=== PATIENT | male | born 1995 | race Caucasian/White ===

== ENCOUNTER 2017-07-14 16:58 | Inpatient (IN) ==
[2017-07-14] MEDS ORDERED: hydrOXYzine pamoate 25 MG CAPSULE PO PRN (20:24)
[2017-07-14] MEDS ORDERED: *HR* LORazepam 2 MG/ML VIAL IM PRN (20:24)
[2017-07-14] MEDS ORDERED: MOM Conc 10 ML UD.LIQ PO PRN (20:24)
[2017-07-14] MEDS ORDERED: *HR* LORazepam 1 MG TABLET PO PRN (20:24)
[2017-07-14] MEDS ORDERED: Mag Hydrox/Al Hydrox/Simeth 30 ML UDC PO PRN (20:24)
[2017-07-14] MEDS ORDERED: Haloperidol Lactate 5 MG/ML VIAL IM PRN (20:24)
[2017-07-14] MEDS ORDERED: Acetaminophen 325 MG TABLET PO PRN (20:24)
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
--- NOTE | 2017-07-16 16:05 | Psychiatry Progress Note ---
Date of Encounter: 07/16/17 Time of Encounter: 15:15 Subjective Interval history: Patient seen for follow-up. Patient continue to display significant symptoms of paranoia and obsessiveness and preoccupation with specific themes: 1. He believes that he was injected with anesthetic for the last 2 nights and he described his sleep as an unusual for him .I attempted to redirect him to standard of care that requires patient consent prior to any medication administration. he does not seem to be receptive 2. Continue to be preoccupied with his testosterone level and trying to explain how he can feel the effect of testosterone on his circulation and other body systems. 3. Continue to be preoccupied with multiple diet supplements and alternative medicine items and having detailed information on each of them, he is dismissive when it comes to seeking professional medical help and treatment instead . 4. I discussed with him treatment trial with medication, he was reluctant and asked me many questions and he was educated about treatment and expectation but could not decided if he would consider this option. Review of Systems Psychiatric: Reports: depression, other (Paranoid delusions, obsessive thoughts) Objective: Exam Patient orientation: Yes Person, Yes Time, Yes Place Level of alertness: Alert Patient appearance: Appropriate, Well Groomed, Bizarre Behavior: calm, cooperative, guarded, suspicious Psychomotor activity: Normal Eye contact: Intense Contact Mood description: Euthymic/stable, Anxious Affect description: congruent with mood, constricted, other (Inappropriate smiling) Speech pattern: Normal rate, Normal rhythm, Normal tone Speech volume: Normal Thought process: Linear, Goal Oriented, Circumstantial Thought content: No Suicidal ideation, Yes Homicidal ideation, No Overt delusions, Yes Preoccupation, Yes Paranoid delusion, Yes Somatic delusion, Yes Obsessive thoughts Perceptual disturbances: No Auditory hallucinations, No Visual hallucinations Judgment: Fair Insight: Partial Results - Vital Signs Vital Signs: Temp Pulse Resp BP 99.2 F 96 18 145/84 07/16/17 08:53 07/16/17 08:53 07/16/17 08:53 07/16/17 08:53 Assessment and Plan (1) Unspecified psychosis Current visit: Yes Status: Acute Plan: Continue hospitalization, Close observation, Suicide Precautions per unit protocol, Encourage participation in unit milieu, Group Therapy, Monitor sleep, Monitor appetite Qualifiers: Psychosis type: unspecified psychosis type Qualified Code(s): F29 - Unspecified psychosis not due to a substance or known physiological condition (2) Delusional disorder Current visit: Yes Status: Acute Plan: Continue hospitalization, Close observation, Suicide Precautions per unit protocol, Encourage participation in unit milieu, Group Therapy, Monitor sleep, Monitor appetite Consult Discharge Plan - Plan Referrals: NONE,PCP [Primary Care Provider] -
--- NOTE | 2017-07-17 12:58 | Psychiatry Progress Note ---
Date of Encounter: 07/17/17 Time of Encounter: 12:30 Subjective Interval history: Patient is seen for follow-up. He reports his sleep is good but not the usual , he still believes that he was given medication or injected. He is agreeable to start treatment trial and explained to him that he will be given medication information and I would be available to answer any questions regarding this treatment trial I also explained that this is optional and he can choose not to have but he stated that he wants to have that treatment trial. Order will be given for Abilify 5 mg daily. Review of Systems Psychiatric: Reports: depression, other (Paranoid delusions, obsessive thoughts) Objective: Exam Patient orientation: Yes Person, Yes Time, Yes Place Level of alertness: Alert Patient appearance: Appropriate, Well Groomed Behavior: calm, cooperative, guarded, suspicious Psychomotor activity: Normal Eye contact: Maintains Eye Contact Mood description: Euthymic/stable Affect description: congruent with mood, full range, other (Inappropriate smiling) Speech pattern: Normal rate, Normal rhythm, Normal tone Speech volume: Normal Thought process: Linear, Goal Oriented Thought content: No Suicidal ideation, No Homicidal ideation, No Overt delusions Perceptual disturbances: No Auditory hallucinations, No Visual hallucinations Judgment: Fair Insight: Partial Results - Vital Signs Vital Signs: Temp Pulse Resp BP 98.3 F 78 16 124/73 07/17/17 09:00 07/17/17 09:00 07/17/17 09:00 07/17/17 09:00 Assessment and Plan (1) Unspecified psychosis Current visit: Yes Status: Acute Plan: Continue hospitalization, Close observation, Suicide Precautions per unit protocol, Encourage participation in unit milieu, Group Therapy, Monitor sleep, Monitor appetite Qualifiers: Psychosis type: unspecified psychosis type Qualified Code(s): F29 - Unspecified psychosis not due to a substance or known physiological condition (2) Delusional disorder Current visit: Yes Status: Acute Plan: Continue hospitalization, Close observation, Suicide Precautions per unit protocol, Encourage participation in unit milieu, Group Therapy, Monitor sleep, Monitor appetite Additional Plan: Patient is agreeable to start treatment trial with Abilify 5 mg daily benefits and side effects were discussed with the patient and will monitor. Risks, benefits, side effects, alternatives discussed w/pt: Yes Patient agreeable to treatment: Yes Consult Discharge Plan - Plan Referrals: NONE,PCP [Primary Care Provider] -
[2017-07-17] MEDS: ARIPiprazole 5 MG TABLET PO SCH (20:44)
--- NOTE | 2017-07-18 14:28 | Psychiatry Progress Note ---
Date of Encounter: 07/18/17 Time of Encounter: 14:00 Subjective Interval history: Patient seen for follow-up. Nursing staff notes were reviewed and social work notes. Patient to his first dose of Abilify yesterday, he denies any problems but he is not sure if it is causing some GI upset. He continued to believe that he has been injected with medication at night's and was injection affecting his sleep despite confirmation that this did not happen. His hospital stay and discharge plans are in the works. He was educated about the medication and he is questions were answered. He is seclusive to his room most of the time. He did not express any suicidal or homicidal ideation. Paranoid delusion and obsessive thoughts related to medication and supplements continues. Review of Systems Psychiatric: Reports: depression, other (Paranoid delusions, obsessive thoughts) Objective: Exam Patient orientation: Yes Person, Yes Time, Yes Place Level of alertness: Alert Patient appearance: Appropriate, Well Groomed Behavior: calm, cooperative, guarded, suspicious Psychomotor activity: Normal Eye contact: Diverts Contact Mood description: Euthymic/stable Affect description: congruent with mood, full range, other (Inappropriate smiling) Speech pattern: Normal rate, Normal rhythm, Normal tone Speech volume: Normal Thought process: Linear, Goal Oriented Thought content: No Suicidal ideation, No Homicidal ideation, No Overt delusions , Yes Preoccupation, Yes Paranoid delusion, Yes Obsessive thoughts Perceptual disturbances: No Auditory hallucinations, No Visual hallucinations Judgment: Fair Insight: Partial Results - Vital Signs Vital Signs: Temp Pulse Resp BP 97.7 F 91 18 139/74 07/18/17 09:00 07/18/17 09:00 07/18/17 09:00 07/18/17 09:00 Assessment and Plan (1) Unspecified psychosis Current visit: Yes Status: Acute Plan: Continue hospitalization, Close observation, Suicide Precautions per unit protocol, Encourage participation in unit milieu, Group Therapy, Monitor sleep, Monitor appetite Qualifiers: Psychosis type: unspecified psychosis type Qualified Code(s): F29 - Unspecified psychosis not due to a substance or known physiological condition (2) Delusional disorder Current visit: Yes Status: Acute Plan: Continue hospitalization, Close observation, Suicide Precautions per unit protocol, Encourage participation in unit milieu, Group Therapy, Monitor sleep, Monitor appetite Risks, benefits, side effects, alternatives discussed w/pt: Yes Patient agreeable to treatment: Yes Consult Discharge Plan - Plan Referrals: NONE,PCP [Primary Care Provider] -
[2017-07-18] MEDS: ARIPiprazole 5 MG TABLET PO SCH (20:52)
--- NOTE | 2017-07-19 13:15 | Psychiatry Progress Note ---
Date of Encounter: 07/19/17 Time of Encounter: 13:09 Subjective Interval history: Patient seen for follow-up. Staff report he continued to believe that he is injected with medication without his knowledge. Continue to endorse paranoid and obsessed about hormonal treatment and alternative supplements. I [facility] and also lists of supplements the patient has been using and there are about 43 supplements. Patient continued to express concern about his safety outside the hospital. He has no insight into his mental illness. He did not provide any traffic personnel supervisor on the records who can be reached if needed. He denies any benefits or side effects from the new medication. Reviewed notes by licensed master social worker and nursing. Review of Systems Psychiatric: Reports: depression, other (Paranoid delusions, obsessive thoughts) Objective: Exam Patient orientation: Yes Person, Yes Time, Yes Place Level of alertness: Alert Patient appearance: Appropriate, Well Groomed Behavior: calm, cooperative, guarded, suspicious Psychomotor activity: Normal Eye contact: Fleeting Contact Mood description: Euthymic/stable, Anxious Affect description: congruent with mood, constricted Speech pattern: Normal rate, Normal rhythm, Normal tone, Other ( vague) Speech volume: Normal Thought process: Linear, Goal Oriented, Evasive Thought content: No Suicidal ideation, No Homicidal ideation, No Overt delusions , Yes Preoccupation, Yes Paranoid delusion, Yes Obsessive thoughts Perceptual disturbances: No Auditory hallucinations, No Visual hallucinations Judgment: Fair Insight: Partial Results - Vital Signs Vital Signs: Temp Pulse Resp BP 98.2 F 105 16 128/76 07/19/17 09:00 07/19/17 09:00 07/19/17 09:00 07/19/17 09:00 Assessment and Plan (1) Unspecified psychosis Current visit: Yes Status: Acute Plan: Continue hospitalization, Close observation, Suicide Precautions per unit protocol, Encourage participation in unit milieu, Group Therapy, Monitor sleep, Monitor appetite Qualifiers: Psychosis type: unspecified psychosis type Qualified Code(s): F29 - Unspecified psychosis not due to a substance or known physiological condition (2) Delusional disorder Current visit: Yes Status: Acute Plan: Continue hospitalization, Close observation, Suicide Precautions per unit protocol, Encourage participation in unit milieu, Group Therapy, Monitor sleep, Monitor appetite Risks, benefits, side effects, alternatives discussed w/pt: Yes Patient agreeable to treatment: Yes Consult Discharge Plan - Plan Referrals: [facility] [Outside] (The above appointment is with , for outpatient psychiatric assessment and medication management services. Please arrive 30 minutes early to complete paperwork. Please bring your photo ID ( bring proof of address if you do not have an ID) and medication list. The above appointment(s) reflects first availability. You may contact the office regularly to check for cancellations that may allow you to be seen sooner. Additionally, the new rn case management assigned to you will contact you directly to schedule your intake appointment for case management and mental health counseling services. )
[2017-07-19] MEDS: ARIPiprazole 5 MG TABLET PO SCH (20:12)
--- NOTE | 2017-07-20 15:09 | Psychiatry Progress Note ---
Date of Encounter: 07/20/17 Time of Encounter: 15:05 Subjective Interval history: Patient seen for follow-up. Nursing staff reports he continued to believe that she is injected at night with medication despite its redirection. Patient continued to endorse his delusion and paranoia . He is preoccupied and obsessed with medication and diet supplements. I discussed with him increasing his dose of Abilify, after long discussion and answering several questions for him is agreeable to increase the medication reluctantly. licensed social worker should this patient information regarding probate hearing next week. He is not presenting any active suicidal or homicidal ideation. He is tolerating current medication. Review of Systems Psychiatric: Reports: depression, other (Paranoid delusions, obsessive thoughts) Objective: Exam Patient orientation: Yes Person, Yes Time, Yes Place Level of alertness: Alert Patient appearance: Appropriate, Well Groomed Behavior: calm, cooperative, guarded, suspicious Psychomotor activity: Normal Eye contact: Fleeting Contact Mood description: Euthymic/stable, Anxious Affect description: congruent with mood, constricted Speech pattern: Normal rate, Normal rhythm, Normal tone, Limited Speech volume: Normal Thought process: Linear, Goal Oriented Thought content: No Suicidal ideation, No Homicidal ideation, No Overt delusions Perceptual disturbances: No Auditory hallucinations, No Visual hallucinations Judgment: Fair Insight: Partial Results - Vital Signs Vital Signs: Temp Pulse Resp BP 98.2 F 99 16 149/81 07/20/17 09:00 07/20/17 09:00 07/20/17 09:00 07/20/17 09:00 Assessment and Plan (1) Unspecified psychosis Current visit: Yes Status: Acute Plan: Continue hospitalization, Close observation, Suicide Precautions per unit protocol, Encourage participation in unit milieu, Group Therapy, Monitor sleep, Monitor appetite Additional Plan: Will increase Abilify to 10 mg at bedtime. Discussed with patient and his agreeable. Qualifiers: Psychosis type: unspecified psychosis type Qualified Code(s): F29 - Unspecified psychosis not due to a substance or known physiological condition (2) Delusional disorder Current visit: Yes Status: Acute Plan: Continue hospitalization, Close observation, Suicide Precautions per unit protocol, Encourage participation in unit milieu, Group Therapy, Monitor sleep, Monitor appetite Risks, benefits, side effects, alternatives discussed w/pt: Yes Patient agreeable to treatment: Yes Consult Discharge Plan - Plan Referrals: [facility] [Outside] (The above appointment is with , for outpatient psychiatric assessment and medication management services. Please arrive 30 minutes early to complete paperwork. Please bring your photo ID ( bring proof of address if you do not have an ID) and medication list. The above appointment(s) reflects first availability. You may contact the office regularly to check for cancellations that may allow you to be seen sooner. Additionally, the new family preservation caseworker assigned to you will contact you directly to schedule your intake appointment for case management and mental health counseling services. )
[2017-07-20] MEDS: ARIPiprazole 5 MG TABLET PO SCH (20:52)
[2017-07-21] MEDS ORDERED: HCG IM SCH (13:15)
--- NOTE | 2017-07-21 15:54 | Psychiatry Progress Note ---
Date of Encounter: 07/21/17 Time of Encounter: 15:49 Subjective Interval history: Patient is seen for follow-up. He is not reporting any significant side effects from medication. He reports mild drowsiness part of the day. He he asked for some of his vitamins or supplements to be brought from home and he is taking them under supervision from the nursing staff. He denies any problem with sleep. Continue to be guarded and suspicious, not socializing with other patients. He asked me about medication benefits and side effects and also the duration of the treatments and what are the expectation of treatment and I educated him about his medication and answered his questions to his satisfaction. Review of Systems Psychiatric: Reports: depression, other (Paranoid delusions, obsessive thoughts) Objective: Exam Patient orientation: Yes Person, Yes Time, Yes Place Level of alertness: Alert Patient appearance: Appropriate, Well Groomed Behavior: calm, cooperative, guarded, suspicious Psychomotor activity: Normal Eye contact: Maintains Eye Contact Mood description: Euthymic/stable Affect description: congruent with mood, full range Speech pattern: Normal rate, Normal rhythm, Normal tone Speech volume: Normal Thought process: Linear, Goal Oriented Thought content: No Suicidal ideation, No Homicidal ideation, Yes Overt delusions, Yes Preoccupation, Yes Paranoid delusion, Yes Obsessive thoughts Perceptual disturbances: No Auditory hallucinations, No Visual hallucinations Judgment: Fair Insight: Partial Results - Vital Signs Vital Signs: Temp Pulse Resp BP 97.7 F 91 18 125/74 07/21/17 09:00 07/21/17 09:00 07/21/17 09:00 07/21/17 09:00 Assessment and Plan (1) Unspecified psychosis Current visit: Yes Status: Acute Plan: Continue hospitalization, Close observation, Suicide Precautions per unit protocol, Encourage participation in unit milieu, Group Therapy, Monitor sleep, Monitor appetite Qualifiers: Psychosis type: unspecified psychosis type Qualified Code(s): F29 - Unspecified psychosis not due to a substance or known physiological condition (2) Delusional disorder Current visit: Yes Status: Acute Plan: Continue hospitalization, Close observation, Suicide Precautions per unit protocol, Encourage participation in unit milieu, Group Therapy, Monitor sleep, Monitor appetite Risks, benefits, side effects, alternatives discussed w/pt: Yes Patient agreeable to treatment: Yes Consult Discharge Plan - Plan Referrals: NONE,PCP [Primary Care Provider] -
[2017-07-21] MEDS: [UNRECOGNIZED DRUG - OTHER] PO SCH (17:42)
[2017-07-21] MEDS: traZODone 50 MG TABLET PO PRN (20:57)
[2017-07-21] MEDS: ARIPiprazole 5 MG TABLET PO SCH (20:57)
[2017-07-21] MEDS: Anastrozole 1 MG TABLET PO SCH (20:57)
[2017-07-22] MEDS: [UNRECOGNIZED DRUG - OTHER] PO SCH (08:44)
--- NOTE | 2017-07-22 14:04 | Psychiatry Progress Note ---
Date of Encounter: 07/22/17 Time of Encounter: 13:30 Subjective Interval history: Patient is seen for follow-up. Staff report she continues to believe that he has been injected with medication every night. He is seclusive to his room and tends attendant ACTIVITIES without participation. He is very strict on his diets and fourth items. He denies any side effects from medication and reports he is less sedated from the medicine. He agreed to have blood test for testosterone level to verify if he needs supplements. She is preoccupied with hormone levels and balance between different supplements that she is taking. [facility] bilateral gynecomastia excision and liposuction on 04/06/2017. By Dr. Diane Casiano M.D. Review of Systems Psychiatric: Reports: depression, other (Paranoid delusions, obsessive thoughts) Objective: Exam Patient orientation: Yes Person, Yes Time, Yes Place Level of alertness: Alert Patient appearance: Appropriate, Well Groomed Behavior: calm, cooperative, guarded, suspicious Psychomotor activity: Normal Eye contact: Maintains Eye Contact Mood description: Euthymic/stable Affect description: congruent with mood, full range, constricted Speech pattern: Normal rate, Normal rhythm, Normal tone, Limited Speech volume: Normal Thought process: Linear, Goal Oriented Thought content: No Suicidal ideation, No Homicidal ideation, No Overt delusions , Yes Preoccupation, Yes Paranoid delusion, Yes Obsessive thoughts Perceptual disturbances: No Auditory hallucinations, No Visual hallucinations Judgment: Fair Insight: Minimal Results - Vital Signs Vital Signs: Temp Pulse Resp BP 98.2 F 101 18 121/64 07/22/17 09:21 07/22/17 09:21 07/22/17 09:21 07/22/17 09:21 Assessment and Plan (1) Unspecified psychosis Current visit: Yes Status: Acute Plan: Continue hospitalization, Close observation, Suicide Precautions per unit protocol, Encourage participation in unit milieu, Group Therapy, Monitor sleep, Monitor appetite Qualifiers: Psychosis type: unspecified psychosis type Qualified Code(s): F29 - Unspecified psychosis not due to a substance or known physiological condition (2) Delusional disorder Current visit: Yes Status: Acute Plan: Continue hospitalization, Close observation, Suicide Precautions per unit protocol, Encourage participation in unit milieu, Group Therapy, Monitor sleep, Monitor appetite Risks, benefits, side effects, alternatives discussed w/pt: Yes Patient agreeable to treatment: Yes Consult Discharge Plan - Plan Referrals: NONE,PCP [Primary Care Provider] -
[2017-07-22] MEDS: [UNRECOGNIZED DRUG - OTHER] PO SCH (18:35)
[2017-07-22] MEDS: ARIPiprazole 5 MG TABLET PO SCH (20:57)
[2017-07-23] MEDS: [UNRECOGNIZED DRUG - OTHER] PO SCH (08:39)
[2017-07-23] MEDS: [UNRECOGNIZED DRUG - OTHER] PO SCH ×2 (08:40→17:42)
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
[2017-07-23] MEDS: ARIPiprazole 5 MG TABLET PO SCH ×2 (17:41→20:23)
[2017-07-23] MEDS: Anastrozole 1 MG TABLET PO SCH (19:07)
[2017-07-24] MEDS: [UNRECOGNIZED DRUG - OTHER] PO SCH (08:13)
[2017-07-24] MEDS: [UNRECOGNIZED DRUG - OTHER] PO SCH ×2 (08:15→18:04)
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
[2017-07-24] MEDS ORDERED: HCG SQ SCH (13:15)
[2017-07-24] MEDS: ARIPiprazole 10 MG TABLET PO SCH (20:48)
[2017-07-24] MEDS: traZODone 50 MG TABLET PO PRN (22:07)
[2017-07-25] MEDS: Ibuprofen 600 MG TABLET PO PRN ×3 (06:14→22:56)
[2017-07-25] MEDS: [UNRECOGNIZED DRUG - OTHER] PO SCH ×2 (08:46→17:29)
[2017-07-25] MEDS: [UNRECOGNIZED DRUG - OTHER] PO SCH ×2 (08:47→11:40)
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
[2017-07-25] MEDS: Anastrozole 1 MG TABLET PO SCH (16:13)
[2017-07-25] MEDS: ARIPiprazole 10 MG TABLET PO SCH (20:58)
[2017-07-25] MEDS ORDERED: OLANZapine 5 MG TAB.RAPDIS PO SCH (21:00)
[2017-07-26] MEDS: Ibuprofen 600 MG TABLET PO PRN ×3 (08:04→20:07)
[2017-07-26] MEDS: [UNRECOGNIZED DRUG - OTHER] PO SCH (08:32)
[2017-07-26] MEDS: [UNRECOGNIZED DRUG - OTHER] PO SCH ×2 (08:33→17:01)
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
[2017-07-26] MEDS: ARIPiprazole 5 MG TABLET PO SCH (20:07)
[2017-07-26] MEDS: OLANZapine 10 MG TAB.RAPDIS PO SCH (20:07)
[2017-07-27] MEDS: Ibuprofen 600 MG TABLET PO PRN ×2 (09:38→17:46)
[2017-07-27] MEDS: [UNRECOGNIZED DRUG - OTHER] PO SCH (09:42)
[2017-07-27] MEDS: [UNRECOGNIZED DRUG - OTHER] PO SCH ×2 (09:53→17:37)
[2017-07-27] MEDS: HCG SQ SCH (09:57)
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
[2017-07-27] MEDS: Anastrozole 1 MG TABLET PO SCH (17:24)
[2017-07-27] MEDS: traZODone 50 MG TABLET PO PRN (21:23)
[2017-07-27] MEDS: ARIPiprazole 5 MG TABLET PO SCH (21:23)
[2017-07-27] MEDS: OLANZapine 10 MG TAB.RAPDIS PO SCH (21:23)
[2017-07-28] MEDS: [UNRECOGNIZED DRUG - OTHER] PO SCH (09:29)
[2017-07-28] MEDS: [UNRECOGNIZED DRUG - OTHER] PO SCH ×2 (09:30→17:13)
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
[2017-07-28] MEDS: Ibuprofen 600 MG TABLET PO PRN ×2 (15:47→20:54)
[2017-07-28] MEDS ORDERED: OLANZapine 10 MG TAB.RAPDIS PO SCH (21:00)
[2017-07-28] MEDS ORDERED: ARIPiprazole 5 MG TABLET PO SCH (21:00)
[2017-07-28] MEDS: traZODone 50 MG TABLET PO PRN (21:31)
[2017-07-29] MEDS: [UNRECOGNIZED DRUG - OTHER] PO SCH (08:47)
[2017-07-29] MEDS: [UNRECOGNIZED DRUG - OTHER] PO SCH ×2 (08:52→17:42)
[2017-07-29] MEDS: Ibuprofen 600 MG TABLET PO PRN ×2 (10:37→18:53)
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
[2017-07-29] MEDS: Anastrozole 1 MG TABLET PO SCH (12:19)
[2017-07-29] MEDS: OLANZapine 10 MG TAB.RAPDIS PO SCH (20:28)
[2017-07-29] MEDS: traZODone 50 MG TABLET PO PRN (21:02)
[2017-07-30] MEDS: HCG SQ SCH (08:50)
[2017-07-30] MEDS: [UNRECOGNIZED DRUG - OTHER] PO SCH (09:31)
[2017-07-30] MEDS: [UNRECOGNIZED DRUG - OTHER] PO SCH ×2 (09:32→17:47)
[2017-07-30] MEDS: Ibuprofen 600 MG TABLET PO PRN ×2 (09:45→16:12)
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
[2017-07-30] MEDS: OLANZapine 10 MG TAB.RAPDIS PO SCH (20:52)
[2017-07-30] MEDS ORDERED: OLANZapine 5 MG TAB.RAPDIS PO SCH (21:00)
[2017-07-31] MEDS: Anastrozole 1 MG TABLET PO SCH (09:26)
[2017-07-31] MEDS: [UNRECOGNIZED DRUG - OTHER] PO SCH (09:27)
[2017-07-31] MEDS: [UNRECOGNIZED DRUG - OTHER] PO SCH ×2 (09:28→17:13)
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
[2017-07-31] MEDS: Ibuprofen 600 MG TABLET PO PRN ×2 (10:41→17:13)
[2017-07-31] MEDS ORDERED: OLANZapine 10 MG TAB.RAPDIS PO SCH (21:00)
[2017-07-31] MEDS: traZODone 50 MG TABLET PO PRN (21:43)
[2017-08-01] MEDS: [UNRECOGNIZED DRUG - OTHER] PO SCH (08:36)
[2017-08-01] MEDS: [UNRECOGNIZED DRUG - OTHER] PO SCH ×2 (08:37→18:17)
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
[2017-08-01] MEDS: Ibuprofen 600 MG TABLET PO PRN ×2 (12:31→20:33)
[2017-08-01] MEDS ORDERED: OLANZapine 10 MG TAB.RAPDIS PO SCH (21:00)
[2017-08-02] MEDS ORDERED: OLANZapine 10 MG TAB.RAPDIS PO SCH (08:59)
[2017-08-02] MEDS: [UNRECOGNIZED DRUG - OTHER] PO SCH (09:28)
[2017-08-02] MEDS: [UNRECOGNIZED DRUG - OTHER] PO SCH ×2 (09:31→20:58)
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
[2017-08-02] MEDS: HCG SQ SCH ×2 (11:34→17:01)
[2017-08-02] MEDS: Anastrozole 1 MG TABLET PO SCH (11:45)
[2017-08-02] MEDS: Ibuprofen 600 MG TABLET PO PRN (15:46)
[2017-08-02] MEDS: traZODone 50 MG TABLET PO PRN (21:53)
--- NOTE | 2017-08-03 09:07 | Psychiatry Progress Note ---
Date of Encounter: 08/03/17 Time of Encounter: 09:40 Subjective Interval history: Patient is seen today for follow-up. He reports that he is not having any side effects to his current meds. He states that he is anxious for discharge plan. He slept well. Denies any auditory or visual hallucinations. He does continue to have fixed delusions but otherwise is able to function appropriately. He is attending appropriately to his ADLs. He is calm and cooperative with staff. Review of Systems Psychiatric: Reports: depression, other (Paranoid delusions, obsessive thoughts) Objective: Exam Patient orientation: Yes Person, Yes Time, Yes Place Level of alertness: Alert Patient appearance: Appropriate, Well Groomed Behavior: calm, cooperative Psychomotor activity: Normal Eye contact: Maintains Eye Contact Mood description: Euthymic/stable Affect description: blunted Speech pattern: Normal rate, Normal rhythm, Normal tone Speech volume: Normal Thought process: Intact Thought content: No Suicidal ideation, No Homicidal ideation, Yes Preoccupation , Yes Paranoid delusion, Yes Obsessive thoughts Perceptual disturbances: No Auditory hallucinations, No Visual hallucinations Judgment: Limited Insight: None Results - Vital Signs Vital Signs: Temp Pulse Resp BP 97.6 F 101 18 136/77 08/03/17 08:49 08/03/17 08:49 08/03/17 08:49 08/03/17 08:49 Assessment and Plan (1) Delusional disorder Current visit: Yes Status: Acute Plan: Continue hospitalization, Close observation, Suicide Precautions per unit protocol, Encourage participation in unit milieu, Group Therapy, Monitor sleep, Monitor appetite Additional Plan: We will continue cross taper of Zyprexa and Prolixin. Continue to monitor for side effects. Attempting to coordinate with family to find a appropriate disposition for patient. He is stabilizing from a psychiatric perspective and his delusions appear fixed at this time. There may be some improvement after Prolixin is fully adjusted. Continue to monitor and encourage reality based thinking. Risks, benefits, side effects, alternatives discussed w/pt: Yes Patient agreeable to treatment: Yes Consult Discharge Plan - Plan Referrals: Liborio Atwood, PhD [Outside] [facility] Solar Energy Technician [facility] [Outside] - 09/01/17 2:00 pm (The above appointment is with Dr. Ayde Feliz, for outpatient psychiatric assessment and medication management services. Please arrive 15 minutes early to complete paperwork. Please bring your insurance card, photo ID and medications in their original bottles. If you are unable to keep this appointment, 24 hour business notice of cancellation is expected. The above appointment(s) reflects first availability. You may contact the office regularly to check for cancellations that may allow you to be seen sooner.)
[2017-08-03] MEDS: Ibuprofen 600 MG TABLET PO PRN (09:45)
[2017-08-03] MEDS: [UNRECOGNIZED DRUG - OTHER] PO SCH (09:46)
[2017-08-03] MEDS: [UNRECOGNIZED DRUG - OTHER] PO SCH ×2 (09:46→17:41)
--- NOTE | 2017-08-03 09:49 | Psychiatry Progress Note ---
Date of Encounter: 08/03/17 Review of Systems Psychiatric: Reports: depression, other (Paranoid delusions, obsessive thoughts) Results - Vital Signs Vital Signs: Temp Pulse Resp BP 97.6 F 101 18 136/77 08/03/17 08:49 08/03/17 08:49 08/03/17 08:49 08/03/17 08:49 Assessment and Plan (1) Delusional disorder Current visit: Yes Status: Acute Risks, benefits, side effects, alternatives discussed w/pt: Yes Patient agreeable to treatment: Yes Consult Discharge Plan - Plan Referrals: Liborio Atwood, PhD [Outside] [facility] Section 8 Property Manager [place] [Outside] - 09/01/17 2:00 pm (The above appointment is with Dr. Ayde Feliz, for outpatient psychiatric assessment and medication management services. Please arrive 15 minutes early to complete paperwork. Please bring your insurance card, photo ID and medications in their original bottles. If you are unable to keep this appointment, 24 hour business notice of cancellation is expected. The above appointment(s) reflects first availability. You may contact the office regularly to check for cancellations that may allow you to be seen sooner.)
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
[2017-08-04] MEDS: [UNRECOGNIZED DRUG - OTHER] PO SCH ×2 (09:24→17:05)
[2017-08-04] MEDS: [UNRECOGNIZED DRUG - OTHER] PO SCH (09:24)
[2017-08-04] MEDS: Anastrozole 1 MG TABLET PO SCH (09:25)
[2017-08-04 14:53] LABS: Arsenic <10.0 ug/L (0.0-13.0); Cadmium <1.0 ug/L (0.0-5.0); Mercury 4 ug/L (0-10)
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
[2017-08-04] MEDS ORDERED: OLANZapine 10 MG TAB.RAPDIS PO SCH (21:00)
[2017-08-05] MEDS: [UNRECOGNIZED DRUG - OTHER] PO SCH (09:12)
[2017-08-05] MEDS: [UNRECOGNIZED DRUG - OTHER] PO SCH ×2 (09:13→17:10)
--- NOTE | 2017-08-05 10:59 | Psychiatry Progress Note ---
Date of Encounter: 08/05/17 Time of Encounter: 10:25 Subjective Interval history: Giuseppe is seen today for follow-up. He is guarded and appears mildly anxious but reports that he slept well. Last night he did have a lot of anxiety and was given the option of taking some Ativan. Patient denies side effects of current medications. He does wonder how long he will be taking these meds. We discussed that he should continue them as prescribed as well as outpatient psychiatrist making any adjustments. We also discussed that the extra supplements the patient had been taking may be affecting his mental health and he should only be taking one suggested by a doctor. Patient is agreeable to all her taking supplements prescribed by an internal audit director and will not be taking any of the extra supplements that are not recommended. Review of Systems Psychiatric: Reports: depression, other (Paranoid delusions, obsessive thoughts) Objective: Exam Patient orientation: Yes Person, Yes Time, Yes Place Level of alertness: Alert Patient appearance: Appropriate, Well Groomed Behavior: calm, guarded Psychomotor activity: Normal Eye contact: Maintains Eye Contact Mood description: Euthymic/stable Affect description: blunted Speech pattern: Normal rate, Normal rhythm, Normal tone Speech volume: Normal Thought process: Intact, Linear Thought content: Yes Preoccupation, Yes Paranoid delusion, Yes Obsessive thoughts Perceptual disturbances: No Auditory hallucinations, No Visual hallucinations Judgment: Limited Insight: Minimal Results - Vital Signs Vital Signs: Temp Pulse Resp BP 98.4 F 73 16 130/73 08/04/17 21:00 08/04/17 21:00 08/04/17 21:00 08/04/17 21:00 - Labs Labs: Laboratory Results - last 24 hr 07/27/17 15:08 Whole Blood Cadmium <1.0 Whole Blood Arsenic <10.0 Whole Blood Lead <2.0 Mercury 4 Assessment and Plan (1) Delusional disorder Current visit: Yes Status: Acute Plan: Continue hospitalization, Close observation, Suicide Precautions per unit protocol, Encourage participation in unit milieu, Group Therapy, Monitor sleep, Monitor appetite Additional Plan: We will increase Prolixin slightly and monitor for side effects. The patient is maintaining current baseline we will likely discharge on Tuesday to his new apartment. Discharge arrangements are being made by the treatment team. Continue to monitor behavior and encourage group attendance. Risks, benefits, side effects, alternatives discussed w/pt: Yes Patient agreeable to treatment: Yes Consult Discharge Plan - Plan Referrals: Liborio Atwood, PhD [Outside] - 08/10/17 1:00 pm (The above appointment is with Liborio Atwood, PhD.) [facility] [Outside] - 09/01/17 2:00 pm (The above appointment is with Dr. Ayde Feliz, psychiatrist. Please arrive 15 minutes early to complete paperwork. Please bring your insurance card, photo ID and medications in their original bottles. If you are unable to keep this appointment, 24 hour business notice of cancellation is expected. The above appointment(s) reflects first availability. You may contact the office regularly to check for cancellations that may allow you to be seen sooner.) Prescriptions: Fluphenazine [Prolixin] 15 mg PO HS #45 tablet
[2017-08-05] MEDS: HCG SQ SCH (16:12)
[2017-08-05] MEDS: traZODone 50 MG TABLET PO PRN (20:46)
[2017-08-06] MEDS: Anastrozole 1 MG TABLET PO SCH (08:56)
[2017-08-06] MEDS: [UNRECOGNIZED DRUG - OTHER] PO SCH ×2 (08:57→17:20)
[2017-08-06] MEDS: [UNRECOGNIZED DRUG - OTHER] PO SCH (08:57)
--- NOTE | 2017-08-06 10:55 | Psychiatry Progress Note ---
Date of Encounter: 08/06/17 Time of Encounter: 10:20 Subjective Interval history: Patient seen and interviewed. History and physical examination reviewed. Patient appears calm and controlled cooperative. He is still preoccupied with his paranoid themes and ideations but at this point he is planning on focusing on his life. He reported that his aunt has arranged an apartment for him and he will be staying there and looking for a job. When explored about his fixed delusions towards his family members patient reported that at this point in time he is not thinking about it and is focusing more on getting his life back. Sleeping and eating better. Denies any suicidal or homicidal ideations. Still appears guarded but more relaxed and calm. Tolerating medications fairly well. Review of Systems Psychiatric: Reports: other (Paranoid delusions, obsessive thoughts) Objective: Exam Patient orientation: Yes Person, Yes Time, Yes Place Level of alertness: Alert Patient appearance: Appropriate, Well Groomed Behavior: calm, guarded Psychomotor activity: Normal Eye contact: Maintains Eye Contact Mood description: Euthymic/stable Affect description: congruent with mood, full range Speech pattern: Normal rate, Normal rhythm, Normal tone Speech volume: Normal Thought process: Linear, Goal Oriented Thought content: No Suicidal ideation, No Homicidal ideation, No Overt delusions , Yes Preoccupation, Yes Paranoid delusion, Yes Obsessive thoughts Perceptual disturbances: No Auditory hallucinations, No Visual hallucinations Judgment: Fair Insight: Partial Results - Vital Signs Vital Signs: Temp Pulse Resp BP 98.0 F 93 16 118/60 08/06/17 09:00 08/06/17 09:00 08/06/17 09:00 08/06/17 09:00 Assessment and Plan (1) Unspecified psychosis Current visit: Yes Status: Acute Plan: Continue hospitalization, Close observation, Suicide Precautions per unit protocol, Encourage participation in unit milieu, Group Therapy, Monitor sleep, Monitor appetite Additional Plan: Possible discharge tomorrow Risks, benefits, side effects, alternatives discussed w/pt: Yes Qualifiers: Psychosis type: unspecified psychosis type Qualified Code(s): F29 - Unspecified psychosis not due to a substance or known physiological condition Consult Discharge Plan - Plan Referrals: Liborio Atwood, PhD [Outside] - 08/10/17 1:00 pm (The above appointment is with Liborio Atwood, PhD.) [facility] [Outside] - 09/01/17 2:00 pm (The above appointment is with Dr. Ayde Feliz, psychiatrist. Please arrive 15 minutes early to complete paperwork. Please bring your insurance card, photo ID and medications in their original bottles. If you are unable to keep this appointment, 24 hour business notice of cancellation is expected. The above appointment(s) reflects first availability. You may contact the office regularly to check for cancellations that may allow you to be seen sooner.) Prescriptions: Fluphenazine [Prolixin] 15 mg PO HS #45 tablet
[2017-08-06 20:56] VITALS: BP 128/72
[2017-08-07] MEDS: [UNRECOGNIZED DRUG - OTHER] PO SCH (09:23)
[2017-08-07] MEDS: [UNRECOGNIZED DRUG - OTHER] PO SCH (09:23)
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
== END 2017-08-07 11:20 | disposition home or self-care (01) | DRG 885 ==
LOC: 1ANU 16:58 → SUATTDRO 16:58
PROVIDERS: ADMIT Psychiatry & Neurology Psychiatry; ATTEND Psychiatry & Neurology Psychiatry

== ENCOUNTER 2017-11-18 17:16 | Inpatient (IN) ==
[2017-11-18 17:54] LABS: Basophils % 0.4 %; Eosinophils % 0.2 %; Hemoglobin 16.7 g/dL (12.9-16.9); Immature Granulocytes % 0.2 % (0-4); Lymphocytes # 1.1 K/mcL (0.6-4.6); Lymphocytes % 12.2 %; Mean Corpuscular HGB Conc 34.8 g/dL (31.6-35.5); Mean Corpuscular Hemoglobin 29.9 pg (28.0-33.3); Mean Corpuscular Volume 85.9 fL (83.0-100.0); Mean Platelet Volume 10.2 fL (9.4-12.4); Monocytes # 0.7 K/mcL (0.0-1.3); Neutrophils # 7.4 K/mcL (1.6-8.9); Platelet Count 225 K/mcL (140-400); Red Blood Count 5.59 M/mcL (4.19-5.50); Red Cell Distribution Width 11.5 % (11.5-14.5)
[2017-11-18 18:09] LABS: BUN/Creatinine Ratio 12 (6-26); Blood Urea Nitrogen 15 mg/dL (6-20); Calcium 9.7 mg/dL (8.6-10.3); Carbon Dioxide 21 mEq/L (23-29); Chloride 104 mEq/L (98-107); Glucose 127 mg/dL (70-105); Osmolality,Calculated 286 (280-300); Potassium 3.6 mEq/L (3.5-5.1); Sodium 137 mEq/L (136-145); eGFR For African Americans > 60 (> 60); eGFR For Non-African Americans > 60 (> 60)
[2017-11-18 18:10] LABS: Acetaminophen < 1.0 mcg/mL (10-30); Ethanol < 10 mg/dL (0-10); Salicylate < 5.0 mg/dL (15.0-30.0)
[2017-11-18 18:24] LABS: Bilirubin,Urine Negative (Negative); Blood,Urine Negative (Negative); Clarity,Urine Clear (Clear); Color,Urine Yellow (Yellow); Glucose,Urine (UA) Normal (Normal); Ketones,Urine 40 mg/dL (Negative); Leukocyte Esterase,Urine Negative (Negative); Nitrite,Urine Negative (Negative); PH,Urine 6.5 pH Units (5.0-8.0); Protein,Urine Negative (Neg-Trace); Specific Gravity,Urine 1.015 (1.010-1.025); Urobilinogen,Urine Normal (Normal)
[2017-11-18 18:29] LABS: Amphetamine Screen,Urine Negative ng/mL (Cutoff=1000); Barbiturate Screen,Urine Negative ng/mL (Cutoff=200); Benzodiazepines Screen,Urine Negative ng/mL (Cutoff=200); Cannabinoid Screen,Urine Negative ng/mL (Cutoff = 50); Cocaine Screen,Urine Negative ng/mL (Cutoff= 300); Opiate Screen,Urine Negative ng/mL (Cutoff=300); Phencyclidine Screen,Urine Negative ng/mL (Cutoff=25)
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
[2017-11-18] MEDS ORDERED: GI Cocktail 40 ML EACH PO ONE (20:28)
[2017-11-18] MEDS ORDERED: *HR* LORazepam 1 MG TABLET PO ONE (20:28)
[2017-11-18] MEDS ORDERED: *HR* LORazepam 1 MG TABLET PO PRN (20:56)
[2017-11-18] MEDS ORDERED: Acetaminophen 325 MG TABLET PO PRN (20:56)
[2017-11-18] MEDS ORDERED: *HR* LORazepam 2 MG/ML VIAL IM PRN (20:56)
[2017-11-18] MEDS ORDERED: Mag Hydrox/Al Hydrox/Simeth 30 ML UDC PO PRN (20:56)
[2017-11-18] MEDS ORDERED: MOM Conc 10 ML UD.LIQ PO PRN (20:56)
[2017-11-19] MEDS: Ascorbic Acid 500 MG TABLET PO SCH (08:48)
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
[2017-11-20] MEDS: Ascorbic Acid 500 MG TABLET PO SCH (09:37)
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
[2017-11-21] MEDS: Ascorbic Acid 500 MG TABLET PO SCH (09:44)
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
[2017-11-21] MEDS: traZODone 50 MG TABLET PO PRN (22:13)
[2017-11-22] MEDS: Ascorbic Acid 500 MG TABLET PO SCH (08:55)
--- NOTE | 2017-11-22 12:45 | Psychiatry Progress Note ---
Date of Encounter: 11/22/17 Time of Encounter: 12:28 Subjective Interval history: Patient seen today , case d/w staff and treatment team , patient remains same extremely preoccupied religiously , will stand for long time in his room praying , and while in session is praying loud. he states that he wants to change medicine as having extreme muscle spasm and weakness. he will answer and then starts praying louder. will dc prolixin as c/o muscle spasm and weakness, on exam AIMS 0 will start olanzapine 5 mg hs patient is not sleeping well as per him and is internally preoccupied ,wide range of thoughts come to his mind and he feels need to pray. today he is more guarded and preoccupied. Review of Systems Psychiatric: Reports: anxiety, change in appetite, difficulty concentrating Objective: Exam Patient orientation: Yes Person, Yes Time, Yes Place Level of alertness: Alert Patient appearance: Appropriate Behavior: guarded, distractible Psychomotor activity: Normal Eye contact: Minimal Contact Mood description: Anxious Affect description: blunted Speech pattern: Slowed Speech volume: Soft/Quiet Thought content: Yes Preoccupation, Yes Moravian delusion Judgment: Poor Insight: Minimal Results - Vital Signs Vital Signs: Temp Pulse Resp BP Pulse Ox 97.6 F 77 14 117/61 100 11/22/17 09:00 11/22/17 09:00 11/22/17 09:00 11/22/17 09:00 11/18/17 17:35 Assessment and Plan (1) Schizophreniform disorder Current visit: Yes Status: Acute Risks, benefits, side effects, alternatives discussed w/pt: Yes Patient agreeable to treatment: Yes Consult Discharge Plan - Plan Referrals: Liborio Atwood, PhD [Outside] [facility] [Outside] - 12/07/17 11:30 am (The above appointment is with Dr. Ayde Feliz for outpatient psychiatric assessment and medication management services. You also have another appointment scheduled with Dr. Feliz for 01/23/2018 at 1:00 PM.)
[2017-11-22] MEDS ORDERED: OLANZapine 5 MG TAB.RAPDIS PO SCH (21:00)
[2017-11-23] MEDS: Ascorbic Acid 500 MG TABLET PO SCH (08:50)
--- NOTE | 2017-11-23 13:18 | Psychiatry Progress Note ---
Date of Encounter: 11/23/17 Time of Encounter: 13:00 Subjective Interval history: Patient seen today , remains same as per treatment team , he has been increasingly praying also while in group he stood up and started praying , also has thoughts and believes he has done things , he is guarded, preoccupied internally and responds only if asked . patient was started on olanzapine as he had side effects from prolixin but he has been on it before and no good response , will change to ольга , d/w patient and he agrees with the plan. patient remains psychotic at present. Review of Systems Psychiatric: Reports: anxiety, change in appetite, difficulty concentrating Objective: Exam Patient orientation: Yes Person, Yes Time, Yes Place Level of alertness: Alert Patient appearance: Appropriate Behavior: cooperative, guarded Psychomotor activity: Slowed Eye contact: Minimal Contact Mood description: Anxious Affect description: blunted Speech pattern: Slowed Speech volume: Soft/Quiet Thought process: Slowed Thinking Thought content: Yes Preoccupation, Yes Voodoo delusion Perceptual disturbances: Yes Reacting to internal stimuli Judgment: Poor Insight: Minimal Results - Vital Signs Vital Signs: Temp Pulse Resp BP Pulse Ox 97.4 F L 81 16 118/64 100 11/23/17 09:00 11/23/17 09:00 11/23/17 09:00 11/23/17 09:00 11/18/17 17:35 Assessment and Plan (1) Schizophreniform disorder Current visit: Yes Status: Acute Risks, benefits, side effects, alternatives discussed w/pt: Yes Patient agreeable to treatment: Yes Consult Discharge Plan - Plan Referrals: Liborio Atwood, PhD [Outside] [facility] [Outside] - 12/07/17 11:30 am (The above appointment is with Dr. Ayde Feliz for outpatient psychiatric assessment and medication management services. You also have another appointment scheduled with Dr. Feliz for 01/23/2018 at 1:00 PM.)
[2017-11-23] MEDS: Ziprasidone 20 MG CAPSULE PO SCH (20:58)
[2017-11-24] MEDS: Ascorbic Acid 500 MG TABLET PO SCH (08:34)
[2017-11-24] MEDS: Ziprasidone 20 MG CAPSULE PO SCH ×2 (08:34→21:44)
--- NOTE | 2017-11-24 12:39 | Psychiatry Progress Note ---
Date of Encounter: 11/24/17 Time of Encounter: 12:10 Subjective Interval history: Patient seen today , case d/w treatment team , as per team he has been staring blankly , praying a lot and internally preoccupied. Today in session with me , he bought list of side effects. states having anxiety , heart feels heavy,voice is different, heavy lungs, thinking is cloudy, low sex drive,blurry vision , low interest in other things , dizzy , lightheaded,circulation problems, hallucinations letters , symbols , objects , sounds , peripheral vision. muscle weakness and fatigue. patient has poor eye contact , speech is fine when he speaks, exam done, no tongue movement , no tremors , no difficulty swallowing as he did and also ate food without any complaint. will add ativan for his anxiety and nervousness. patient agreed with plan. Review of Systems Psychiatric: Reports: anxiety, change in appetite, difficulty concentrating Objective: Exam Patient orientation: Yes Person, Yes Time, Yes Place Level of alertness: Alert Patient appearance: Appropriate Behavior: cooperative, guarded Psychomotor activity: Slowed Eye contact: Minimal Contact Mood description: Anxious Affect description: blunted, flat Speech pattern: Slowed Speech volume: Soft/Quiet Thought process: Disorganized, Slowed Thinking Thought content: Yes Preoccupation, Yes Paranoid delusion, Yes Hindu delusion, Yes Obsessive thoughts, Yes Poverty of Content Perceptual disturbances: Yes Reacting to internal stimuli Judgment: Poor Insight: None Results - Vital Signs Vital Signs: Temp Pulse Resp BP Pulse Ox 98.1 F 93 16 130/67 100 11/24/17 09:00 11/24/17 09:00 11/24/17 09:00 11/24/17 09:00 11/18/17 17:35 Assessment and Plan (1) Schizophreniform disorder Current visit: Yes Status: Acute Risks, benefits, side effects, alternatives discussed w/pt: Yes Patient agreeable to treatment: Yes Consult Discharge Plan - Plan Referrals: Liborio Atwood, PhD [Outside] [facility] [Outside] - 12/07/17 11:30 am (The above appointment is with Dr. Ayde Feliz for outpatient psychiatric assessment and medication management services. You also have another appointment scheduled with Dr. Feliz for 01/23/2018 at 1:00 PM.)
[2017-11-24] MEDS: *HR* LORazepam 0.5 MG TABLET PO SCH ×2 (14:44→21:44)
[2017-11-25] MEDS: Ziprasidone 20 MG CAPSULE PO SCH ×2 (08:52→21:23)
[2017-11-25] MEDS: *HR* LORazepam 0.5 MG TABLET PO SCH ×3 (08:52→21:24)
[2017-11-25] MEDS: Ascorbic Acid 500 MG TABLET PO SCH (08:52)
--- NOTE | 2017-11-25 11:56 | Psychiatry Progress Note ---
Date of Encounter: 11/25/17 Time of Encounter: 11:30 Subjective Interval history: patient seen today , probate done . he today feels inside his head feels weird , its not pain or headache some thing like in brain. he also c/o cloudy thinking and not focused and feels tired. he is preoccupied with the side effects. he is on low dose of geodon and at present tolerating well , will not increase dose yet , today no complain of muscle weakness or stiffness. eating his meals and also attended groups. still has pre occupation with sins and praying. he has in past using multiple supplements . today states that when i was on harmone replacement therapy i was better , i had no anxiety and my head was clear. was on testosterone before , wants to start that. Review of Systems Psychiatric: Reports: anxiety, change in appetite, difficulty concentrating Objective: Exam Patient orientation: Yes Person, Yes Time, Yes Place Level of alertness: Alert Patient appearance: Appropriate Behavior: cooperative, guarded Psychomotor activity: Slowed Eye contact: Minimal Contact Mood description: Anxious Affect description: blunted Speech pattern: Slowed Speech volume: Normal Thought process: Perseveration Thought content: Yes Overt delusions, Yes Preoccupation, Yes Mormonism delusion , Yes Somatic delusion Judgment: Poor Insight: Partial Results - Vital Signs Vital Signs: Temp Pulse Resp BP Pulse Ox 98 F 93 16 119/67 100 11/25/17 09:00 11/25/17 09:00 11/25/17 09:00 11/25/17 09:00 11/18/17 17:35 Assessment and Plan (1) Schizophreniform disorder Current visit: Yes Status: Acute Risks, benefits, side effects, alternatives discussed w/pt: Yes Patient agreeable to treatment: Yes Consult Discharge Plan - Plan Referrals: Liborio Atwood, PhD [Outside] [facility] [Outside] - 12/07/17 11:30 am (The above appointment is with Dr. Ayde Feliz for outpatient psychiatric assessment and medication management services. You also have another appointment scheduled with Dr. Feliz for 01/23/2018 at 1:00 PM.)
[2017-11-26] MEDS: *HR* LORazepam 0.5 MG TABLET PO SCH ×3 (09:11→22:37)
[2017-11-26] MEDS: Ziprasidone 20 MG CAPSULE PO SCH (09:11)
[2017-11-26] MEDS: Ascorbic Acid 500 MG TABLET PO SCH (09:12)
--- NOTE | 2017-11-26 12:29 | Psychiatry Progress Note ---
Date of Encounter: 11/26/17 Time of Encounter: 12:15 Subjective Interval history: Patient seen today , case d/w staff. Patient is more verbal now , still poor eye contact , states i had incident last night after i got emotional from the memories i was having and i called my parents and after i finished my conversation with them and apologized to them , i felt better. i was crying for no reason and i apologized to nurses . slept better, still releigiously preoccupied but not to that extent. will increase geodon to 20 mg am and 40 mg po pm . monitor closely. Review of Systems Psychiatric: Reports: anxiety, change in appetite, difficulty concentrating Results - Vital Signs Vital Signs: Temp Pulse Resp BP Pulse Ox 97.4 F L 56 17 119/54 100 11/26/17 09:00 11/26/17 09:00 11/26/17 09:00 11/26/17 09:00 11/18/17 17:35 Assessment and Plan (1) Schizophreniform disorder Current visit: Yes Status: Acute Risks, benefits, side effects, alternatives discussed w/pt: Yes Patient agreeable to treatment: Yes Consult Discharge Plan - Plan Referrals: Liborio Atwood, PhD [Outside] [facility] [Outside] - 12/07/17 11:30 am (The above appointment is with Dr. Ayde Feliz for outpatient psychiatric assessment and medication management services. You also have another appointment scheduled with Dr. Feliz for 01/23/2018 at 1:00 PM.) Psychiatry Exam - Constitutional Vitals: Temp Pulse Resp BP Pulse Ox 97.4 F L 56 17 119/54 100 11/26/17 09:00 11/26/17 09:00 11/26/17 09:00 11/26/17 09:00 11/18/17 17:35 General appearance: age & developmentally appropriate - Musculoskeletal Gait: normal Station: other Strength & Tone: normal for patient - Psychiatric Patient Orientation: Yes Person, Yes Time, Yes Place Level of alertness: Alert Behavior: guarded Psychomotor activity: Normal Eye Contact: Minimal Contact Mood Description: Anxious Affect description: blunted Speech Volume: Soft/Quiet Speech pattern: slowed Language & Vocabulary: limited Thought Process: Slowed Thinking Thought Content: Yes Preoccupation, Yes Pentecostal delusion Attention Span Ability: Unable to Sustain Attention Patient Reliability: Questionable Historian Fund of knowledge: Yes average Intelligence Estimate: Average Judgment: Limited Insight: Minimal
[2017-11-26] MEDS ORDERED: *HR* LORazepam 2 MG/ML VIAL IM STA (20:04)
[2017-11-26] MEDS ORDERED: Haloperidol Lactate 5 MG/ML VIAL IM ONE (20:05)
[2017-11-26] MEDS ORDERED: OLANZapine 10 MG TAB.RAPDIS PO STA (20:12)
[2017-11-26] MEDS: Divalproex (12 HR) 250 MG TABLET PO SCH (20:29)
[2017-11-26] MEDS ORDERED: Ziprasidone 20 MG CAPSULE PO SCH (21:00)
[2017-11-27] MEDS: Ziprasidone 20 MG CAPSULE PO SCH ×2 (08:56→10:23)
[2017-11-27] MEDS: Ascorbic Acid 500 MG TABLET PO SCH (08:56)
[2017-11-27] MEDS: Divalproex (12 HR) 250 MG TABLET PO SCH ×2 (08:56→21:25)
[2017-11-27] MEDS: *HR* LORazepam 0.5 MG TABLET PO SCH ×3 (08:56→21:23)
--- NOTE | 2017-11-27 12:04 | Psychiatry Progress Note ---
Date of Encounter: 11/27/17 Time of Encounter: 11:40 Subjective Interval history: Patient seen today , case d/w staff. Patient was given prn medications yesterday and this morning as he would take out all his clothes and come out of room and will not wear clothes. after the prn medications he slept but in morning again was naked and in day room , he was redirected to his room and sitter was assigned as patient can be in his room and not to disrupt the unit miliue he is redirectable but refuses to wear clothes, he stated I am praying and this is what i have to do now, he is internally pre occupied but denies auditory or visual hallucination. he is continuosly reading bible. at present no agitation and remains delusional. regarding his medications multiple changes done , he did not respond to geodon there fore re started Prolixin with benadryl , he had responded well to it but had c/o muscle spasm with not only prolixin but with all other anti psychotics given he has been tried on zyprexa, geodon , abilify and risperdal. also started depakote which will help his moods and add on to antipsychotic will help his psychosis. AT PRESENT NO SIDE EFFECTS NOTED OR COMPLAINED BY PATIENT. Continue sitter for his safety and others. prolixin 5 mg bid benadryl 50 mg po bid. robi rolon . Review of Systems Psychiatric: Reports: anxiety, change in appetite, difficulty concentrating Results - Vital Signs Vital Signs: Temp Pulse Resp BP Pulse Ox 97.4 F L 68 18 114/53 100 11/27/17 09:00 11/27/17 09:00 11/27/17 09:00 11/27/17 09:00 11/18/17 17:35 Assessment and Plan (1) Schizophreniform disorder Current visit: Yes Status: Acute Risks, benefits, side effects, alternatives discussed w/pt: Yes Patient agreeable to treatment: Yes Consult Discharge Plan - Plan Referrals: Liborio Atwood, PhD [Outside] [facility] [Outside] - 12/07/17 11:30 am (The above appointment is with Dr. Ayde Feliz for outpatient psychiatric assessment and medication management services. You also have another appointment scheduled with Dr. Feliz for 01/23/2018 at 1:00 PM.) Psychiatry Exam - Constitutional Vitals: Temp Pulse Resp BP Pulse Ox 97.4 F L 68 18 114/53 100 11/27/17 09:00 11/27/17 09:00 11/27/17 09:00 11/27/17 09:00 11/18/17 17:35 General appearance: age & developmentally appropriate - Musculoskeletal Gait: normal Station: bizarre mannerisms Strength & Tone: normal for patient - Psychiatric Patient Orientation: Yes Person, Yes Place Level of alertness: Alert Behavior: cooperative Psychomotor activity: Normal Eye Contact: Minimal Contact Mood Description: Anxious Affect description: flat Speech Volume: Soft/Quiet Speech pattern: slowed Language & Vocabulary: limited Thought Process: Disorganized Thought Content: Yes Overt delusions, Yes Preoccupation, Yes Gnosticist delusion , Yes Somatic delusion Perceptual Disturbances: Yes Reacting to internal stimuli Attention Span Ability: Unable to Sustain Attention Patient Reliability: Questionable Historian Intelligence Estimate: Average Judgment: Poor Insight: None
[2017-11-28] MEDS: Divalproex (12 HR) 250 MG TABLET PO SCH ×2 (09:11→20:51)
[2017-11-28] MEDS: *HR* LORazepam 0.5 MG TABLET PO SCH ×3 (09:12→20:51)
[2017-11-28] MEDS: Ascorbic Acid 500 MG TABLET PO SCH (09:12)
--- NOTE | 2017-11-28 17:36 | Psychiatry Progress Note ---
Date of Encounter: 11/28/17 Time of Encounter: 17:00 Subjective Interval history: Patient seen for follow-up. Case discussed with nursing staff. He reports side effects from Prolixin. He is religiously preoccupied. 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 He asked for medication change. Review of Systems Psychiatric: Reports: anxiety, change in appetite, difficulty concentrating Results - Vital Signs Vital Signs: Temp Pulse Resp BP Pulse Ox 97.4 F L 66 16 105/57 100 11/28/17 09:00 11/28/17 09:00 11/28/17 09:00 11/28/17 09:00 11/18/17 17:35 Assessment and Plan (1) Schizophreniform disorder Current visit: Yes Status: Acute Plan: Continue hospitalization, Close observation, Suicide Precautions per unit protocol, Encourage participation in unit milieu, Group Therapy, Monitor sleep, Monitor appetite Risks, benefits, side effects, alternatives discussed w/pt: Yes Patient agreeable to treatment: Yes Consult Discharge Plan - Plan Referrals: Liborio Atwood, PhD [Outside] [facility] [Outside] - 12/07/17 11:30 am (The above appointment is with Dr. Ayde Feliz for outpatient psychiatric assessment and medication management services. You also have another appointment scheduled with Dr. Feliz for 01/23/2018 at 1:00 PM.) Psychiatry Exam - Constitutional Vitals: Temp Pulse Resp BP Pulse Ox 97.4 F L 66 16 105/57 100 11/28/17 09:00 11/28/17 09:00 11/28/17 09:00 11/28/17 09:00 11/18/17 17:35 General appearance: age & developmentally appropriate, well-groomed, well- nourished - Musculoskeletal Gait: normal Station: relaxed Strength & Tone: normal for patient - Psychiatric Patient Orientation: Yes Person, Yes Time, Yes Place Level of alertness: Alert Behavior: calm, cooperative, anxious, guarded, suspicious Psychomotor activity: Normal Eye Contact: Maintains Eye Contact Mood Description: Euthymic/stable, Anxious Affect description: congruent with mood, constricted Speech Volume: Normal Speech pattern: normal rate, normal rhythm, normal tone, fluent, spontaneous Language & Vocabulary: consistent with education Thought Process: Logical, Circumstantial, Tangential, Thought Blocking Thought Content: No Suicidal ideation, No Homicidal ideation, Yes Preoccupation , Yes Paranoid delusion, Yes Tenriism delusion Perceptual Disturbances: No Auditory hallucinations, No Visual hallucinations Attention Span Ability: Capable of Focused Attention Memory Description: Grossly Intact Patient Reliability: Reliable Historian Fund of knowledge: Yes abstraction ability, Yes average, Yes aware of current events Intelligence Estimate: Average Judgment: Limited Insight: Partial
[2017-11-28] MEDS: Ziprasidone 20 MG CAPSULE PO SCH (20:51)
[2017-11-29] MEDS: Ziprasidone 20 MG CAPSULE PO SCH ×2 (09:21→20:11)
[2017-11-29] MEDS: Ascorbic Acid 500 MG TABLET PO SCH (09:22)
[2017-11-29] MEDS: *HR* LORazepam 0.5 MG TABLET PO SCH ×3 (09:22→20:12)
[2017-11-29] MEDS: Divalproex (12 HR) 250 MG TABLET PO SCH ×2 (09:22→20:12)
--- NOTE | 2017-11-29 13:21 | Psychiatry Progress Note ---
Date of Encounter: 11/29/17 Time of Encounter: 13:00 Subjective Interval history: Patient seen for follow-up. Case discussed with treatment team. Medication changes were done on his request from [place] to No due to perceived side effects. He is guarded and less religiously preoccupied. He is interested in going back to school. He denies any problem with sleep or appetite. Review of Systems Psychiatric: Reports: anxiety, change in appetite, difficulty concentrating, other (Nondenominational preoccupation) Results - Vital Signs Vital Signs: Temp Pulse Resp BP Pulse Ox 97.2 F L 72 12 115/54 100 11/29/17 09:00 11/29/17 09:00 11/29/17 09:00 11/29/17 09:00 11/18/17 17:35 Assessment and Plan (1) Schizophreniform disorder Current visit: Yes Status: Acute Risks, benefits, side effects, alternatives discussed w/pt: Yes Patient agreeable to treatment: Yes Consult Discharge Plan - Plan Referrals: Liborio Atwood, PhD [Outside] [facility] [Outside] - 12/07/17 11:30 am (The above appointment is with Dr. Ayde Feliz for outpatient psychiatric assessment and medication management services. You also have another appointment scheduled with Dr. Feliz for 01/23/2018 at 1:00 PM.) Psychiatry Exam - Constitutional Vitals: Temp Pulse Resp BP Pulse Ox 97.2 F L 72 12 115/54 100 11/29/17 09:00 11/29/17 09:00 11/29/17 09:00 11/29/17 09:00 11/18/17 17:35 General appearance: age & developmentally appropriate, well-groomed, well- nourished - Musculoskeletal Gait: normal Station: relaxed Strength & Tone: normal for patient - Psychiatric Patient Orientation: Yes Person, Yes Time, Yes Place Level of alertness: Alert Behavior: calm, cooperative, guarded, suspicious Psychomotor activity: Normal Eye Contact: Maintains Eye Contact Mood Description: Euthymic/stable, Depressed Affect description: congruent with mood, constricted Speech Volume: Normal Speech pattern: normal rate, normal rhythm, normal tone, fluent, spontaneous Language & Vocabulary: consistent with education Thought Process: Linear, Goal Oriented Thought Content: No Suicidal ideation, No Homicidal ideation, No Overt delusions , Yes Preoccupation, Yes Nondenominational delusion Perceptual Disturbances: No Auditory hallucinations, No Visual hallucinations Attention Span Ability: Capable of Focused Attention Memory Description: Grossly Intact Patient Reliability: Reliable Historian Fund of knowledge: Yes abstraction ability, Yes aware of current events Intelligence Estimate: Average Judgment: Limited Insight: Partial
[2017-11-29] MEDS: traZODone 50 MG TABLET PO PRN (22:54)
[2017-11-30] MEDS: Divalproex (12 HR) 250 MG TABLET PO SCH ×2 (09:08→20:54)
[2017-11-30] MEDS: Ziprasidone 20 MG CAPSULE PO SCH ×2 (09:08→20:54)
[2017-11-30] MEDS: Ascorbic Acid 500 MG TABLET PO SCH (09:08)
[2017-11-30] MEDS: *HR* LORazepam 0.5 MG TABLET PO SCH ×3 (09:09→20:54)
--- NOTE | 2017-11-30 14:44 | Psychiatry Progress Note ---
Date of Encounter: 11/30/17 Time of Encounter: 14:15 Subjective Interval history: Patient is seen for follow-up. Case discussed with treatment team. Staff report he is showing improvements less anxious, not reporting any side effects of medication, denies any problem with sleep not presenting open delusion or paranoia or preoccupation. He is interested in going home and return him back to school. I discussed with him at length activities and structure and time management as important part of his treatment plan he was receptive to the education. Review of Systems Psychiatric: Reports: anxiety, change in appetite, difficulty concentrating, other (Presybeterian preoccupation) Results - Vital Signs Vital Signs: Temp Pulse Resp BP Pulse Ox 98.2 F 81 18 98/59 100 11/30/17 09:00 11/30/17 09:00 11/30/17 09:00 11/30/17 09:00 11/18/17 17:35 Assessment and Plan (1) Schizophreniform disorder Current visit: Yes Status: Acute Plan: Continue hospitalization, Close observation, Suicide Precautions per unit protocol, Encourage participation in unit milieu, Group Therapy, Monitor sleep, Monitor appetite Risks, benefits, side effects, alternatives discussed w/pt: Yes Patient agreeable to treatment: Yes Consult Discharge Plan - Plan Referrals: Liborio Atwood, PhD [Outside] - 12/11/17 1:30 pm (The above appointment is with Dr. Atwood for outpatient mental health counseling services.) [facility] [Outside] - 12/07/17 11:30 am (The above appointment is with Dr. Ayde Feliz for outpatient psychiatric assessment and medication management services. You also have another appointment scheduled with Dr. Feliz for 01/23/2018 at 1:00 PM.) Psychiatry Exam - Constitutional Vitals: Temp Pulse Resp BP Pulse Ox 98.2 F 81 18 98/59 100 11/30/17 09:00 11/30/17 09:00 11/30/17 09:00 11/30/17 09:00 11/18/17 17:35 General appearance: age & developmentally appropriate, well-groomed, well- nourished - Musculoskeletal Gait: normal Station: relaxed Strength & Tone: normal for patient - Psychiatric Patient Orientation: Yes Person, Yes Time, Yes Place Level of alertness: Alert Behavior: calm, cooperative, guarded Psychomotor activity: Normal Eye Contact: Maintains Eye Contact Mood Description: Euthymic/stable Affect description: congruent with mood, full range Speech Volume: Normal Speech pattern: normal rate, normal rhythm, normal tone, fluent, spontaneous Language & Vocabulary: consistent with education Thought Process: Linear, Goal Oriented Thought Content: No Suicidal ideation, No Homicidal ideation, No Overt delusions Perceptual Disturbances: No Auditory hallucinations, No Visual hallucinations Attention Span Ability: Capable of Focused Attention Memory Description: Grossly Intact Patient Reliability: Reliable Historian Fund of knowledge: Yes abstraction ability, Yes aware of current events Intelligence Estimate: Average Judgment: Limited Insight: Partial
[2017-12-01] MEDS: *HR* LORazepam 0.5 MG TABLET PO SCH ×3 (08:51→21:32)
[2017-12-01] MEDS: Divalproex (12 HR) 250 MG TABLET PO SCH ×2 (08:51→21:32)
[2017-12-01] MEDS: Ascorbic Acid 500 MG TABLET PO SCH (08:52)
[2017-12-01] MEDS: Ziprasidone 20 MG CAPSULE PO SCH ×2 (08:52→21:32)
--- NOTE | 2017-12-01 15:44 | Psychiatry Progress Note ---
Date of Encounter: 12/01/17 Time of Encounter: 15:10 Subjective Interval history: Patient is seen for follow-up. Case discussed with treatment team. He is denying any hallucinations or suicidal ideation, he describes some blurring of vision or visual distortions otherwise he denies any side effects. He is motivated to go back to school in group forward to discharge. Family meeting was completed to discuss his condition and discharge plans and questions been answered. Review of Systems Psychiatric: Reports: anxiety, change in appetite, difficulty concentrating, other (Gnosticism preoccupation) Results - Vital Signs Vital Signs: Temp Pulse Resp BP Pulse Ox 96.8 F L 68 16 113/72 100 12/01/17 09:00 12/01/17 09:00 12/01/17 09:00 12/01/17 09:00 11/18/17 17:35 Assessment and Plan (1) Schizophreniform disorder Current visit: Yes Status: Acute Plan: Continue hospitalization, Close observation, Suicide Precautions per unit protocol, Encourage participation in unit milieu, Group Therapy, Monitor sleep, Monitor appetite Risks, benefits, side effects, alternatives discussed w/pt: Yes Patient agreeable to treatment: Yes Consult Discharge Plan - Plan Referrals: Liborio Atwood, PhD [Outside] - 12/11/17 1:30 pm (The above appointment is with Dr. Atwood for outpatient mental health counseling services.) [facility] [Outside] - 12/07/17 11:30 am (The above appointment is with Dr. Ayde Feliz for outpatient psychiatric assessment and medication management services. You also have another appointment scheduled with Dr. Feliz for 01/23/2018 at 1:00 PM.) Psychiatry Exam - Constitutional Vitals: Temp Pulse Resp BP Pulse Ox 96.8 F L 68 16 113/72 100 12/01/17 09:00 12/01/17 09:00 12/01/17 09:00 12/01/17 09:00 11/18/17 17:35 General appearance: age & developmentally appropriate, well-groomed, well- nourished - Musculoskeletal Gait: normal Station: relaxed Strength & Tone: normal for patient - Psychiatric Patient Orientation: Yes Person, Yes Time, Yes Place Level of alertness: Alert Behavior: calm, cooperative, guarded, suspicious Psychomotor activity: Normal Eye Contact: Maintains Eye Contact Mood Description: Euthymic/stable Affect description: congruent with mood, constricted Speech Volume: Normal Speech pattern: normal rate, normal rhythm, normal tone, fluent, spontaneous Language & Vocabulary: consistent with education Thought Process: Linear, Goal Oriented, Thought Blocking Thought Content: No Suicidal ideation, No Homicidal ideation, No Overt delusions , Yes Preoccupation, Yes Paranoid delusion, Yes Gnosticism delusion Perceptual Disturbances: No Auditory hallucinations, No Visual hallucinations Attention Span Ability: Capable of Focused Attention Memory Description: Grossly Intact Patient Reliability: Reliable Historian Fund of knowledge: Yes abstraction ability, Yes aware of current events Intelligence Estimate: Average Judgment: Limited Insight: Partial
[2017-12-01 21:32] LABS: Basophils # 0.1 K/mcL (0.0-0.2); Basophils % 0.8 %; Eosinophils # 0.1 K/mcL (0.0-0.6); Eosinophils % 1.8 %; Hematocrit 50.2 % (37.5-50.1); Hemoglobin 17.2 g/dL (12.9-16.9); Immature Granulocytes % 0.2 % (0-4); Lymphocytes # 2.6 K/mcL (0.6-4.6); Mean Corpuscular HGB Conc 34.3 g/dL (31.6-35.5); Mean Corpuscular Hemoglobin 30.1 pg (28.0-33.3); Mean Corpuscular Volume 87.8 fL (83.0-100.0); Mean Platelet Volume 10.9 fL (9.4-12.4); Monocytes # 0.5 K/mcL (0.0-1.3); Monocytes % 7.6 %; Neutrophils # 2.9 K/mcL (1.6-8.9); Platelet Count 154 K/mcL (140-400); Red Blood Count 5.72 M/mcL (4.19-5.50); Segmented Neutrophils % 47.6 %
[2017-12-02] MEDS: *HR* LORazepam 0.5 MG TABLET PO SCH (08:50)
[2017-12-02] MEDS: Ziprasidone 20 MG CAPSULE PO SCH (08:50)
[2017-12-02] MEDS: Ascorbic Acid 500 MG TABLET PO SCH (08:50)
[2017-12-02] MEDS: Divalproex (12 HR) 250 MG TABLET PO SCH (08:51)
[2017-12-02 09:24] VITALS: BP 118/66
--- NOTE | 2017-12-02 10:20 | Discharge Summary ---
Date of Encounter: 12/02/17 Time of Encounter: 10:17 Diagnosis - Discharge Diagnosis (1) Schizophreniform disorder Status: Acute Medications - Discharge Medications Prescriptions: Divalproex (12 HR) [Depakote (12 HR)] 250 mg PO BID #60 tablet. Ziprasidone [Geodon] 20 mg PO BID #60 capsule Pantoprazole Sodium [Protonix] 40 mg PO DAILY 07/15/17 [History] Ascorbic Acid [Vitamin C] 500 mg PO DAILY 11/18/17 [History] Divalproex (12 HR) [Depakote (12 HR)] 250 mg PO BID #60 tablet. 12/02/17 [Rx] Ziprasidone [Geodon] 20 mg PO BID #60 capsule 12/02/17 [Rx] 3 Allergy/AdvReac Type Severity Reaction Status Date / Time Penicillins Allergy Rash Verified 07/08/17 18:23 Results Procedures and tests throughout hospitalization: Completed Lab Orders Category Date Time Status CBC [Complete Blood Count] [HEME] Timed Lab 12/01/17 21:05 Completed Provider Date of admission: 11/18/17 20:45 Primary care physician: PCP NONE Discharging clinician: Mahin Cormier Psychiatry Exam - Constitutional Vitals: Temp Pulse Resp BP Pulse Ox 97.2 F L 76 12 118/66 100 12/02/17 09:00 12/02/17 09:00 12/02/17 09:00 12/02/17 09:00 11/18/17 17:35 General appearance: age & developmentally appropriate, well-groomed, well- nourished - Musculoskeletal Gait: normal Station: relaxed Strength & Tone: normal for patient - Psychiatric Patient Orientation: Yes Person, Yes Time, Yes Place Level of alertness: Alert Behavior: calm, cooperative, guarded Psychomotor activity: Normal Eye Contact: Maintains Eye Contact Mood Description: Euthymic/stable Affect description: congruent with mood, constricted Speech Volume: Normal Speech pattern: normal rate, normal rhythm, normal tone, fluent, spontaneous Language & Vocabulary: consistent with education Thought Process: Linear, Goal Oriented Thought Content: No Suicidal ideation, No Homicidal ideation, No Overt delusions Perceptual Disturbances: No Auditory hallucinations, No Visual hallucinations Attention Span Ability: Capable of Focused Attention Memory Description: Grossly Intact Patient Reliability: Reliable Historian Fund of knowledge: Yes abstraction ability, Yes aware of current events Intelligence Estimate: Average Judgment: Limited Insight: Partial Hospital Course Hospital course: Mr. Avila is a 22 year old male admitted for evaluation and treatment of psychosis NOS with increasing delusions and paranoia and faith preoccupation and inability to function. For details of the admission please see H&P On the unit patient was evaluated and started on medication including Prolixin and Depakote, patient expressed concern about extrapyramidal side effects from Prolixin and Effexor was replaced with Geodon, he tolerated the medication and reported improved sleep and appetite. Patient had an episode of psychosis and agitation that was managed by medication and resolved. Patient was reported self isolating most of the time in his room praying and reading the Bible but he was not overtly hallucinating or paranoid. Prior to discharge he was more interactive with staff and peer if his approached, he participated in some groups and he was asking question to the doctor about his medication and his questions were answered. He showed improved insight and on discharge he was not showing any paranoia or delusions, no suicidal ideation and he was medically stable and looking forward to discharge with plans to go back to school. Family was very supportive and visiting the patient's and family meeting was completed prior to his discharge to discuss his treatment and future plans and continue with she will care and there questions where answered. Patient is discharged in stable condition with follow-up outpatient appointments with psychiatrist and therapist. - Time Spent with Patient Total time spent providing and/or coordinating discharge services: Less than 30 minutes Assessment and Plan - Patient/Caregiver Discharge Instructions Activity: resume usual activities as tolerated Diet: regular diet - Follow up Plan Follow up with: Liborio Atwood, PhD [Outside] - 12/11/17 1:30 pm (The above appointment is with Dr. Atwood for outpatient mental health counseling services.) [facility] [Outside] - 12/07/17 11:30 am (The above appointment is with Dr. Ayde Feliz for outpatient psychiatric assessment and medication management services. You also have another appointment scheduled with Dr. Feliz for 01/23/2018 at 1:00 PM.) Functional capacity at discharge: independent ambulation Overall status at discharge: Stable Disposition: Home, Self-Care Quality - Multiple Antipsychotics Patient discharged on 2 or more antipsychotic medications: No Procedures - Procedures Procedures: Medication Management, Crisis Stabilization, Supportive Therapy, Group Therapy, Psychoeducational Therapy
--- NOTE | 2017-12-06 21:53 | Electrocardiograph Report ---
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
== END 2017-12-02 12:30 | disposition home or self-care (01) | DRG 885 ==
LOC: EMEROO 17:16 → 1ANU 20:45 → SUATTDRO 20:45 → 1ANU 21:01
PROVIDERS: ADMIT Student in an Organized Health Care Education/Training Program; ATTEND Psychiatry & Neurology Psychiatry